=== PATIENT | female | born 1980 ===

== ENCOUNTER 2018-01-29 17:20 | Emergency (ER) | payer MEDICAID ==
[2018-01-29] MEDS: HYDROCODONE/APAP (5/325) TAB PO (19:02)
== END 2018-01-29 20:09 | disposition home or self-care (01) ==
LOC: FTE 17:20
DX: M54.2 Cervicalgia (principal); M25.512 Pain in left shoulder
CPT/HCPCS: 71045; 72040; 73010; 73030; 73130-LT; 81025; 99284-25